=== PATIENT | female | born 1990 | race Caucasian/White ===

== ENCOUNTER 2016-09-12 12:40 | Emergency (ER) | payer MEDICAID ==
[~2016-09-12] VITALS: Ht 154.9 cm; Wt 69.2 kg
[~2016-09-12 12:40] MED LIST: FOLI-17 PO; NICO1PAT5 TD; OMEP-110 PO; THIA100T6 PO
[2016-09-12] MEDS ORDERED: MORPHINE SULFATE 4 MG/ML, 1ML ONE (13:53)
[2016-09-12] MEDS ORDERED: ONDANSETRON 2MG/ML, 2ML ONE (13:53)
[2016-09-12] MEDS ORDERED: SODIUM CHLORIDE FLUSH 10ML SYR IVF ONE (14:00)
[2016-09-12] MEDS ORDERED: SODIUM CHLORIDE 0.9% 1,000ML IVBOLUS ONE (14:00)
[2016-09-12] MEDS ORDERED: ONDANSETRON 2MG/ML, 2ML IVPush ONE (14:00)
[2016-09-12] MEDS ORDERED: MORPHINE SULFATE 4 MG/ML, 1ML IVPush PRN (14:00)
[2016-09-12 14:45] LABS: BLOOD UREA NITROGEN 7 mg/dL (7-18)
[2016-09-12 14:51] LABS: ASPARTATE AMINO TRANSFERASE 27 U/L (15-37)
[2016-09-12] MEDS ORDERED: MAALOX/HYOSCYAMINE/LIDOCAINE 45 ML BOTTLE ONE (15:23)
[2016-09-12] MEDS ORDERED: MAALOX/HYOSCYAMINE/LIDOCAINE 45 ML BOTTLE PO ONE (15:30)
[2016-09-12 15:43] VITALS: BP 146/70
== END 2016-09-12 15:45 | disposition home or self-care (01) ==
LOC: ED 15:00
DX: K29.20 Alcoholic gastritis without bleeding (principal); Z72.89 Other problems related to lifestyle
CPT/HCPCS: 36415; 80053; 80307; 83690; 84703; 85025; 96361; 96374; 99284; J2405; J7030

== ENCOUNTER 2016-11-20 18:58 | Emergency (ER) | payer MEDICAID ==
[~2016-11-20] VITALS: Ht 154.9 cm; Wt 68.5 kg
[~2016-11-20 18:58] MED LIST changes: +NICO1PAT16 TD; -NICO1PAT5 TD
[2016-11-20 18:59] VITALS: BP 140/98
== END 2016-11-20 19:49 | disposition home or self-care (01) ==
LOC: ED 19:40
DX: K08.89 Other specified disorders of teeth and supporting structures (principal)
CPT/HCPCS: 99283

== ENCOUNTER 2017-03-13 17:50 | Emergency (ER) | payer MEDICAID ==
[~2017-03-13] VITALS: Ht 154.9 cm; Wt 66.2 kg
[~2017-03-13 17:50] MED LIST changes: +NICO-487 TD; -NICO1PAT16 TD
[2017-03-13 18:13] VITALS: BP 117/83
[2017-03-13] MEDS ORDERED: LIDOCAINE 1%, 10ML INFIL ONE (19:30)
[2017-03-13] MEDS ORDERED: LIDOCAINE 1%, 10ML ONE (19:34)
== END 2017-03-13 20:16 | disposition home or self-care (01) ==
LOC: ED 20:10
DX: K04.7 Periapical abscess without sinus (principal); K02.9 Dental caries, unspecified; Z87.19 Personal history of other diseases of the digestive system
CPT/HCPCS: 41800; 99283

== ENCOUNTER 2017-05-15 22:39 | Inpatient (IN) | payer MEDICAID ==
[~2017-05-15] VITALS: Ht 154.9 cm; Wt 66.0 kg
[2017-05-16 00:59] LABS: BASOPHILS # (AUTO) 0.05 x10^3/uL (0-0.1); BASOPHILS % (AUTO) 1 % (0-1); EOSINOPHILS % (AUTO) 1 % (1-7); LYMPHOCYTES # (AUTO) 2.08 x10^3/uL (1-3.4); LYMPHOCYTES % (AUTO) 25 % (22-44); MD NO; MEAN CORPUSCULAR HEMOGLOBIN 30.9 pg (27.0-34.8); MEAN CORPUSCULAR VOLUME 90.9 fL (80-100); MEAN PLATELET VOLUME 7.6 fL (7.4-10.4); MONOCYTES # (AUTO) 0.61 x10^3/uL (0.2-0.8); MONOCYTES % (AUTO) 7 % (2-9); NEUTROPHILS # (AUTO) 5.63 x10^3/uL (1.8-6.8); NEUTROPHILS % (AUTO) 67 % (42-75); PLATELET COUNT 333 x10^3/uL (130-400); RED BLOOD COUNT 4.32 x10^6/uL (3.82-5.3)
[2017-05-16] MEDS ORDERED: KETOROLAC 30 MG/1 ML IVPush ONE (01:00)
[2017-05-16] MEDS ORDERED: SODIUM CHLORIDE 0.9% 1,000ML IVBOLUS ONE (01:00)
[2017-05-16] MEDS ORDERED: FAMOTIDINE 20 MG/2 ML IVP ONE (01:00)
[2017-05-16] MEDS ORDERED: PROCHLORPERAZINE 5 MG/ML, 2ML IVPush ONE (01:00)
[2017-05-16] MEDS ORDERED: SODIUM CHLORIDE FLUSH 10ML SYR IVF ONE (01:00)
[2017-05-16 01:09] LABS: ALANINE AMINOTRANSFERASE 38 U/L (12-78); ALBUMIN 2.7 g/dL (3.4-5.0); ANION GAP 12 mmol/L (5-15); CALCIUM 8.8 mg/dL (8.5-10.1); CHLORIDE 104 mmol/L (98-107); CREATININE 0.48 mg/dL (0.55-1.02)
[2017-05-16 01:14] LABS: ALKALINE PHOSPHATASE 195 U/L (45-117); BILIRUBIN,TOTAL 0.3 mg/dL (0.2-1.0); TOTAL PROTEIN 7.5 g/dL (6.4-8.2)
[2017-05-16] MEDS ORDERED: FAMOTIDINE 20 MG/2 ML ONE (01:42)
[2017-05-16] MEDS ORDERED: PROCHLORPERAZINE 5 MG/ML, 2ML ONE (01:42)
[2017-05-16] MEDS ORDERED: KETOROLAC 30 MG/1 ML ONE ×2 (01:42→07:20)
[2017-05-16] MEDS ORDERED: OMNIPAQUE 350 MG/ML, 100ML BOTTLE ONE (02:14)
[2017-05-16] MEDS ORDERED: POTASSIUM CHLORIDE 40 MEQ in SODIUM CHLORIDE 0.9% 500 ML IV ONE (03:30)
[2017-05-16] MEDS ORDERED: POTASSIUM CHLORIDE 20 MEQ, MAGNESIUM SULFATE 2 GM, MVI ADULT 10 ML, FOLIC ACID 1 MG in ... IV SCH (06:27)
[2017-05-16] MEDS ORDERED: HALOPERIDOL 5 MG/ML IVPush PRN (06:30)
[2017-05-16] MEDS ORDERED: ENOXAPARIN 40 MG/0.4 ML SQ SCH (06:30)
[2017-05-16] MEDS: POTASSIUM CHLORIDE 40 MEQ in D5%-0.9% NACL 1,000 ML IV SCH ×2 (06:30→13:18)
[2017-05-16] MEDS ORDERED: PROCHLORPERAZINE 5 MG/ML, 2ML IV PRN (06:30)
[2017-05-16] MEDS ORDERED: ACETAMINOPHEN 325 MG TABLET PO PRN (06:30)
[2017-05-16] MEDS ORDERED: ONDANSETRON 2MG/ML, 2ML IVPush PRN (06:30)
[2017-05-16] MEDS ORDERED: hydrALAzine 20 MG/ML, 1ML IVPush PRN (06:30)
[2017-05-16] MEDS ORDERED: KETOROLAC 30 MG/1 ML IM SCH (07:00)
[2017-05-16] MEDS ORDERED: ENOXAPARIN 40 MG/0.4 ML ONE (07:20)
[2017-05-16] MEDS ORDERED: THIAMINE 100MG TABLET ONE (08:49)
[2017-05-16] MEDS ORDERED: THIAMINE 100MG TABLET PO SCH (09:00)
[2017-05-16 12:30] VITALS: BP 134/103
== END 2017-05-16 15:00 | disposition left against medical advice (07) | DRG 391 ==
LOC: ED 23:59 → EDIP 05-16 05:21 → SUATTDRO 05-16 05:52 → 4WST 05-16 12:30
PROVIDERS: ADMIT Hospitalist; ATTEND Hospitalist
DX: K52.9 Noninfective gastroenteritis and colitis, unspecified (principal); E43 Unspecified severe protein-calorie malnutrition; K56.7 Ileus, unspecified; E86.9 Volume depletion, unspecified; E87.6 Hypokalemia; F10.20 Alcohol dependence, uncomplicated; F11.90 Opioid use, unspecified, uncomplicated; F17.210 Nicotine dependence, cigarettes, uncomplicated; I88.0 Nonspecific mesenteric lymphadenitis; Z53.21 Procedure and treatment not carried out due to patient leaving prior to being seen by health care provider; Z68.27 Body mass index [BMI] 27.0-27.9, adult
CPT/HCPCS: 36415; 74177; 80053; 83690; 84703; 85025; 96361; 96365; 96366; 96372; 96375; J1650; J1885; J3475; J3480; J7042; Q9967; J0780; J7030; J7040; S0028